=== PATIENT | male | born 1995 | race Two or more races ===

== ENCOUNTER 2019-07-18 17:02 | Emergency (ER) | payer SELFPAY ==
[~2019-07-18] VITALS: Ht 170.2 cm; Wt 65.8 kg
--- NOTE | 2019-07-18 17:30 | NUR ---
ED Nurse Note: Pt walked into ED w/ c/o abscess posterior head and left head. Abscess is red and swollen, no discharge. Pt is alert and orientedx4, ambulatory. Pt pain is 3/10. Abscesses appeared after pt shaved head 1 week ago.
[2019-07-18] MEDS ORDERED: Lidocaine 2% 20mg/ml/Epi 0.005mg/ml 20ml vial INJ ONE (17:45)
[2019-07-18] MEDS ORDERED: Cephalexin 500mg cap ORAL ONE (17:45)
--- NOTE | 2019-07-18 17:45 | Emergency Room Report ---
History of Present Illness General Chief Complaint: Skin Rash/Abscess Source: Patient Present Illness HPI 24-year-old male presents to the emergency department complaining of 7 out of 10 severity pain, tenderness, swelling and erythema to a localized area of the nape of his neck progressive x5 days. Patient also reports having an open wound that is resolving which had similar presentation initially x1 week on the left side of his head. Patient denies fevers or chills. He reports he is up-to -date with vaccinations. He denies recent travel or ill contacts with similar symptoms. Patient denies history of immune compromise. Patient reports that normally he has very long hair however recently he did shave his head. Patient states that he was able to squeeze white pus out of the wound on the left side of his head 2 days ago. No other aggravating or relieving factors at this time. Patient denies headache or photophobia. Pt. denies fevers, chills or swollen tender lymph nodes. Denies lesions/rashes elsewhere on the body. Denies new medications or body washes or creams. Denies swelling of the lips, tongue , throat or airway. Denies wheezing, or shortness of breath. denies blisters, oral lesions, or sloughing of the skin Allergies: Coded Allergies: No Known Allergies (Unverified , 07/18/19) COVID-19 Screening Contact w/high risk pt: No Recent Travel to affected area: No Experienced COVID-19 symptoms?: No Patient History Past Medical History: see triage record Past Surgical History: none Pertinent Family History: none Immunizations: UTD Reviewed Nursing Documentation: PMH: Agreed; PSxH: Agreed Nursing Documentation-PMH Past Medical History: No Stated History Review of Systems All Other Systems: negative except mentioned in HPI Physical Exam Vital Signs Date Time Temp Pulse Resp B/P (MAP) Pulse Ox O2 Delivery O2 Flow Rate FiO2 07/18/19 17:09 98.8 76 20 124/80 (95) Room Air Sp02 EP Interpretation: reviewed, normal General Appearance: no apparent distress, alert, GCS 15, non-toxic Head: normocephalic, other - 2cm erythematous, warm indurated palpable cyst at the nape of the neck/head, no blisters or vessicles. Pt. also has 0.5 cm healing/draining lesion without palpable flucutance of the left parietal area. Eyes: bilateral eye normal inspection, bilateral eye PERRL ENT: hearing grossly normal, normal voice Neck: full range of motion, no meningismus, no bony tend Respiratory: lungs clear, normal breath sounds, speaking full sentences Cardiovascular #1: regular rate, rhythm Genitourinary: normal inspection Musculoskeletal: normal range of motion, gait/station normal, non-tender Neurologic: alert, motor strength/tone normal, oriented x3, sensory intact, responsive, speech normal Psychiatric: judgement/insight normal Skin: other - 2cm erythematous, warm indurated palpable cyst at the nape of the neck/head, no blisters or vessicles. Pt. also has 0.5 cm healing/draining lesion without palpable flucutance of the left parietal area. Lymphatic: no adenopathy Procedures Incision and Drainage Incision and Drainage : Consent: Verbal Site: 1 Blade Size: 11 I & D Procedure: betadine prep, sterile drapes applied, sterile dressing applied Wound Location: head - nape of the neck Wound's Depth, Shape: linear Wound Length (cm): 1 Wound Explored: contaminated - thick purulent material was expressed along with some blood. Irrigated w/ Saline (ccs): 20 Anesthesia: Lidocaine w/ Epi Volume Anesthetic (ccs): 2 Splint Applied?: No Sling Applied?: No Patient Tolerated: Well Complications: None Medical Decision Making PA Attestation Dr. Gayle is my supervising Physician whom patient management has been discussed with. Diagnostic Impression: Primary Impression: Infected epidermoid cyst ER Course 24-year-old male presents to the emergency department complaining of 7 out of 10 severity pain, tenderness, swelling and erythema to a localized area of the nape of his neck progressive x5 days. Patient also reports having an open wound that is resolving which had similar presentation initially x1 week on the left side of his head. Patient denies fevers or chills. He reports he is up-to -date with vaccinations. He denies recent travel or ill contacts with similar symptoms. Patient denies history of immune compromise. Patient reports that normally he has very long hair however recently he did shave his head. Patient states that he was able to squeeze white pus out of the wound on the left side of his head 2 days ago. No other aggravating or relieving factors at this time. Patient denies headache or photophobia. Pt. denies fevers, chills or swollen tender lymph nodes. Denies lesions/rashes elsewhere on the body. Denies new medications or body washes or creams. Denies swelling of the lips, tongue , throat or airway. Denies wheezing, or shortness of breath. denies blisters, oral lesions, or sloughing of the skin 2cm erythematous, warm indurated palpable cyst at the nape of the neck/head, no blisters or vesicles. Pt. also has 0.5 cm healing/draining lesion without palpable fluctuance of the left parietal area. Ddx considered but are not limited to cellulitis, abscess, cystic acne, necrotizing fasciitis, insect bite. Vital signs: are WNL, pt. is afebrile H&PE are most consistent with infected 2cm cyst at the nape of the neck. ORDERS: none required at this time, the diagnosis is clinical ED INTERVENTIONS: -Tylenol PO -Keflex PO -Bacitracin TP -I & D. DISCHARGE: At this time pt. is stable for d/c to home. Will provide printed patient care instructions, and any necessary prescriptions. Care plan and follow up instructions have been discussed with the patient prior to discharge. Last Vital Signs Date Time Temp Pulse Resp B/P (MAP) Pulse Ox O2 Delivery O2 Flow Rate FiO2 07/18/19 17:09 98.8 76 20 124/80 (95) Room Air Disposition: HOME, SELF-CARE Condition: Stable Scripts Mupirocin* (MUPIROCIN*) 22 Gm Oint...g. 1 APPLIC TOPIC THREE TIMES A DAY, #22 GM Prov: Kimmie Lundy 07/18/19 Cephalexin* (KEFLEX*) 500 Mg Capsule 500 MG ORAL EVERY 12 HOURS for 7 Days, #14 CAP 0 Refills Prov: Kimmie Lundy 07/18/19 Trimethoprim/Sulfamethoxazole 160/800* (BACTRIM DS TABLET*) 1 Each Tablet 1 TAB ORAL TWICE A DAY for 7 Days, #14 TAB Prov: Kimmie Lundy 07/18/19 Referrals: [facility] Patient Instructions: Epidermal Cyst Additional Instructions: Take medications as directed. Follow up with a Primary Care Provider in 3-5 days for DERMATOLOGY REFERRAL , even if your symptoms have resolved. --Please review list of primary care clinics, if you do not already have a primary care provider Return sooner to ED if new symptoms occur, or current symptoms become worse. - Please note that this Emergency Department Report was dictated using howsimplefence rider technology software, occasionally this can lead to erroneous entry secondary to interpretation by the dictation equipment. Kimmie Lundy Jul 18, 2019 17:45
[2019-07-18 18:30] VITALS: BP 122/76
[2019-07-18] MEDS ORDERED: MUPIROCIN22 GM TOPIC (18:35)
[2019-07-18] MEDS ORDERED: CEPHALEXIN500 MG ORAL (18:35)
[2019-07-18] MEDS ORDERED: BACTRIM DS TAB1 EAC1 ORAL (18:35)
[2019-07-18] MEDS ORDERED: Bacitracin Oint UD TOPIC ONE (18:45)
--- NOTE | 2019-07-18 19:10 | NUR ---
ER DISCHARGE NOTE: Patient is cleared to be discharged per ERMD, pt is aox4, on room air, with stable vital signs. pt was given dc and prescription instructions, pt was able to verbalize understanding, pt id band removed. pt is able to ambulate with steady gait. pt took all belongings. BAcitracin and gauze applied to both abscesses.
[2019-07-18 19:22] VITALS: BP 120/77
== END 2019-07-18 19:20 | disposition home or self-care (01) ==
LOC: EMR 17:25
DX: L72.0 Epidermal cyst (principal)
CPT/HCPCS: 99283